=== PATIENT | female | born 1980 | race Caucasian/White ===

== ENCOUNTER 2023-11-19 14:39 | Outpatient (OUT) | payer BC, SELFPAY ==
[2023-11-19 15:16] LABS: Basophils Absolute Auto 0.1 10^3/uL (0.0-0.1); Basophils Percent Auto 0.4 % (0.2-2.0); Eosinophils Absolute Auto 0.3 10^3/uL (0.0-0.7); Eosinophils Percent Auto 2.3 % (0.9-7.0); Hematocrit 34.6 % (36.0-48.0); Hemoglobin 11.7 g/dL (12.0-16.0); Immature Granulocytes Abs Auto 0.04 10^3/uL (0.00-0.03); Immature Granulocytes Pct Auto 0.3 % (0.0-0.5); Lymphocytes Absolute Auto 4.2 10^3/uL (1.2-3.8); Lymphocytes Percent Auto 30.5 % (20.5-60.0); Mean Corpuscular HGB Conc 33.8 g/dL (29.9-35.2); Mean Corpuscular Hemoglobin 32.1 pg (26.7-34.0); Mean Corpuscular Volume 95.1 fL (81.0-99.0); Mean Platelet Volume 10.5 fL (9.5-13.5); Monocytes Absolute Auto 1.4 10^3/uL (0.3-0.8); Monocytes Percent Auto 10.1 % (1.7-12.0); Neutrophils Absolute Auto 7.7 10^3/uL (1.4-6.5); Neutrophils Percent Auto 56.4 % (43.0-75.0); Platelet Count 260 10^3/uL (150-450); Red Blood Count 3.64 10^6/uL (4.20-5.40); Red Cell Distribution Width 12.6 % (11.0-15.0); White Blood Count 13.7 10^3/uL (4.0-11.0)
[2023-11-19 15:30] LABS: Estimated Average Glucose 108 mg/dL; Glycohemoglobin A1C 5.4 % (4.5-6.2)
[2023-11-19 16:36] LABS: Alanine Aminotransferase 20 U/L (14-59); Albumin Globulin Ratio 1.1; Albumin Level 3.7 g/dL (3.4-5.0); Alkaline Phosphatase 53 U/L (46-116); Aspartate Amino Transferase 9 U/L (15-37); BUN Creatinine Ratio 17.6; Bilirubin Direct <0.1 mg/dL (0.0-0.2); Bilirubin Total 0.2 mg/dL (0.2-1.0); Calcium 8.5 mg/dL (8.5-10.1); Carbon Dioxide 27.6 mmol/L (21.0-32.0); Chloride 104 mmol/L (98-107); Chol HDL Ratio 6.1; Cholesterol 209 mg/dL (<=200); Estimated GFR (African America >60 (>=60); Estimated GFR (Non-African Ame >60 (>=60); Globulin 3.3 g/dL; Glucose 86 mg/dL (74-106); HDL Cholesterol 34 mg/dL (40-60); Potassium 3.6 mmol/L (3.5-5.1); Sodium 140 mmol/L (136-145); Thyroid Stimulating Hormone 2.764 uIU/mL (0.358-3.740); Triglycerides 191 mg/dL (<=150); VLDL CHOLESTEROL 38.2 mg/dL
== END 2023-11-19 14:40 | disposition home or self-care (01) ==
LOC: LAB 14:39
PROVIDERS: PCP Family Medicine; Visit Provider Family Medicine
DX: Z00.00 Encounter for general adult medical examination without abnormal findings (principal)
CPT/HCPCS: 36415; 80048; 80061; 80076; 83036; 84443; 85025

== ENCOUNTER 2023-12-12 21:28 | Outpatient (REF) | payer BC, SELFPAY ==
--- OUTSIDE RECORDS SUMMARY | 2023-12-12 21:33 | XMS_ITS | CCD ---
Author Organization [facility] Care Team Providers Care Third Miller Name Role Phone SHAYLA SANCHEZ Admitting Unavailable SHAYLA SANCHEZ Attending Unavailable Amie Huber Unavailable SHAYLA SANCHEZ Attending Unavailable Medications Current Medications Medication Drug Class(es) Dates Sig (Normalized) Sig (Original) methylPREDNISolone 4 mg oral tablet (1 source) Corticosteroid Start: 2 methylPREDNISolone 4 MG as directed Orally Once a day for 6 days May, Active Problems Active Problems Problem Classification Problem Date Documented Da te Episodic/Chronic Immunizations and screening for infectious disease (1 source) Contact with and (suspected) exposure to other viral communicable diseases Episodic Past or Other Problems Problem Classification Problem Date Documented Da te Episodic/Chronic Headache; including migraine (1 source) Headache; including migraine Viral infection (1 source) COVID-19 Results Test Name Value Interpretation Reference Range Facil ity COVID/FLU RT-PCRon 2 SARS-CoV-2 (COVID-19) RNA MATEO+probe Ql (Unsp spec) Positive [employer] Other COVID/FLU RT-PCR Negative [facility] [employer] Other Vital Signs Date Time Vital Sign Value Performing Clinician Facility 05-22-2022 15:45-0500 Body height 162.56 cm Amie Huber Other [facility] Other 05-22-2022 15:45-0500 Body mass index (BMI) [Ratio] 34.33 kg/m2 Amie Huber Other [facility] Other 05-22-2022 15:45-0500 Body temperature 99.8 [degF] Amie Huber Other [facility] Other 05-22-2022 15:45-0500 Body weight 90.72 kg Amie Huber Other [facility] Other 05-22-2022 15:45-0500 Respiratory rate 18 /min Amie Huber Other [facility] Other 05-22-2022 15:45-0500 SaO2% (BldA) [Mass fraction] 95 % Amie Huber Other [facility] Other Encounters Encounter Date Encounter Type Care Provider Facility Start: 11-21-2023 End: 11-21-2023 ambulatory SHAYLA SANCHEZ Not Available Start: 05-22-2022 End: 05-22-2022 ambulatory Amie Huber Other [facility] Other Start: 05-22-2022 Office outpatient ne w 30 minutes Amie Cecile [facility] Start: 10-28-2018 Patient encounter procedure SHAYLA Bob JOSEFidelina Facility:H1 Payers Date Payer Category Payer Medicare [id number] 1980 Unknown [id number] 2.16.84 [id number] 1980 Unknown [id number] 2.16.84 [id number] 1957 Self-pay Unknown [id number] 2.1 [id number] Social History Date Type Detail Facility Sex Assigned At [facility] Other Evaluation note 05-22-2022 Note Date & Type Note Facility 05-22-2022 Evaluation note Encounter Date Diagnosis Assessment Notes May, Contact with and (suspected) exposure to other viral communicable diseases (ICD-10 - Z20.828) May, COVID-19 (ICD-10 - U07.1) Today you tested positive for the COVID virus. This mean you need to follow all CDC quarantine guidelines found at coronavirus.o hio.gov. It is important to rest, increase fluids, and stay at home. Recommend contacting primary care provider and discussing best course of action if you have chronic health conditions. COVID POSITIVE education handout discharge instructions. given. May, Sinus headache (ICD-10 - R51.9) [facility] Other Summary Purpose Family History No Family History Records FoundNo Family History Records Found Advance Directives No Advanced Directives Records FoundNo Advanced Directives Records Found Additional Source Comments INFORMATION SOURCE (unrecogn ized section and content) DATE CREATED AUTHOR 01/18/2019 [facility] DATE CREATED AUTHOR AUTHOR'S ORGANIZ ATION 11/22/2023 [facility] EPIC REASON FOR VISIT (unrecogniz ed section and content) COUGH, CONGESTION FOR RECORDS PERTAINING TO PATIENTS WHO ARE OR HAVE BEEN ENROLLED IN A CHEMICAL DEPENDENCY/SUBSTANCEABUSE PROGRAM, SOME INFORMATION MAY BE OMITTED. This clinical summary was aggregated from multiple sources. Caution should be exercised in using it in the provision of clinical care. This summary normalizes information from multiple sources, and as a consequence, information in this document may materially change the coding, format and clinical context of patient data. In addition, data may be omitted in some cases. CLINICAL DECISIONS SHOULD BE BASED ON THE PRIMARY CLINICAL RECORDS. [employer] provides no warranty or guarantee of the accuracy or completeness of information in this document.
[2023-12-18 00:06] LABS: Age Gdln ACOG Testing Note (.); HPV Aptima Negative (Negative); IGP, Aptima HPV, rfx 16/18,45 Note (.)
== END 2023-12-12 21:29 | disposition home or self-care (01) ==
LOC: LAB 21:28
PROVIDERS: PCP Family Medicine; Visit Provider Nurse Practitioner
DX: Z01.419 Encounter for gynecological examination (general) (routine) without abnormal findings (principal)
CPT/HCPCS: 87624; 88175

== ENCOUNTER 2024-01-17 15:18 | Outpatient (OUT) | payer BC, SELFPAY ==
--- NOTE | 2024-01-17 15:50 | MM_ITS ---
Patient Name: TANYA MANCINI MR#: [id number] : 1980 Exam Date: 01/17/2024 Ordering Doctor: DR Fam Gale . RADIOLOGY REPORT PROCEDURE: MM TOMOSYNTHESIS SCREENING BI COMPARISON: None. INDICATIONS: Screening Calculator Name NCI Breast Cancer Risk Assessment Tool 5 Year Breast Cancer Risk 1.10% Lifetime Breast Cancer Risk 17.70% Personal Breast Cancer No Personal Ovarian Cancer No Treatments None Family Cancers Mother with breast cancer at age 57; Aunt-maternal with breast cancer at age 59. LOCATION: [facility] BREAST COMPOSITION: There are scattered areas of fibroglandular density. FINDINGS: DIAGNOSTIC CATEGORY 2--BENIGN FINDING: Scattered benign-appearing nodules are present. Scattered benign-appearing calcifications are present. Scattered benign-appearing lymph nodes are present. RIGHT BREAST: No significant suspicious finding. LEFT BREAST: No significant suspicious finding. RECOMMENDATIONS: ROUTINE MAMMOGRAM AND CLINICAL EVALUATION IN 12 MONTHS. PLEASE NOTE: A NORMAL MAMMOGRAM DOES NOT EXCLUDE THE POSSIBILITY OF BREAST CANCER. A CLINICALLY SUSPICIOUS PALPABLE LUMP SHOULD BE BIOPSIED. Dictated by: Yahir Muller MD on 01/17/2024 at 16:21 Approved by: Yahir uMller MD on 01/17/2024 at 16:29
== END 2024-01-17 15:19 | disposition home or self-care (01) ==
LOC: MAMMO 15:18
PROVIDERS: PCP Family Medicine; Visit Provider Family Medicine
DX: Z12.31 Encounter for screening mammogram for malignant neoplasm of breast (principal); Z80.3 Family history of malignant neoplasm of breast
CPT/HCPCS: 77063; 77067

== ENCOUNTER 2024-02-26 11:00 | Outpatient (OUT) | payer MEDICAID, SELFPAY ==
--- OUTSIDE RECORDS SUMMARY | 2024-02-26 11:03 | XMS_ITS | CCD ---
Author Organization [facility] Care Team Providers Care Chess Instructor Name Role Phone SHAYLA SANCHEZ Admitting Unavailable SHAYLA SANCHEZ Attending Unavailable Amie Huber Unavailable SHAYLA SANCHEZ Attending Unavailable LYNN RANDLE Attending Unavailable NILE TALAVERA Attending Unavailable Medications Current Medications Medication Drug [...] (COVID-19) RNA MATEO+probe Ql (Unsp spec) Positive [employer] Other COVID/FLU RT-PCR Negative [employer] Other Vital Signs Date Time Vital Sign Value Performing Clinician Facility 05-22-2022 15:45-0500 Body height 162.56 cm Amie Huber Other [facility] Other 05-22-2022 15:45-0500 Body mass index (BMI) [Ratio] 34.33 kg/m2 Amie Huber Other [facility] Other 05-22-2022 15:45-0500 Body temperature 99.8 [degF] Amie Huber Other [facility] Other 05-22-2022 15:45-0500 Body weight 90.72 kg Amie Huber Other [facility] Other 05-22-2022 15:45-0500 Respiratory rate 18 /min Amie Huber Other [facility] Other 05-22-2022 15:45-0500 SaO2% (BldA) [Mass fraction] 95 % Amie Huber Other [facility] Other Encounters Encounter Date Encounter Type Care Provider Facility Start: 02-05-2024 End: 02-05-2024 ambulatory NILE SADAF Not Available Start: 12-12-2023 End: 12-12-2023 ambulatory LYNN JER Not Available Start: 11-21-2023 End: 11-21-2023 ambulatory SHAYLA SANCHEZ Not Available Start: 05-22-2022 End: 05-22-2022 ambulatory Amie Cecile Other [facility] Other Start: 05-22-2022 Office outpatient ne w 30 minutes Amie Cecile [facility] Start: 10-28-2018 Patient encounter procedure SHAYLA SANCHEZ Facility:[facility]1 Payers Date Payer Category Payer Medicaid [id number] 1980 Unknown [id number] 2.16.84 [id number] 1980 Unknown [id number] [id number] 1980 Unknown [id number] 2.16.84 [id number] 1980 Unknown [id number] 2.16.84 [id number] 1957 Self-pay Unknown [id number] 2.1 [id number] Social History Date Type Detail Facility Sex Assigned At [facility] Other Evaluation note 05-22-2022 Note Date & [...] given. May, Sinus headache (ICD-10 - R51.9) [facility] Other Summary Purpose Family History No Family History Records FoundNo Family History Records Found Advance Directives No Advanced Directives Records FoundNo Advanced Directives Records Found Additional Source Comments INFORMATION SOURCE (unrecogn ized section and content) DATE CREATED AUTHOR 01/18/2019 [facility] DATE CREATED AUTHOR AUTHOR'S ORGANIZ ATION 02/07/2024 [facility] EPIC REASON FOR VISIT (unrecogniz [...] BE BASED ON THE PRIMARY CLINICAL RECORDS. [facility]. provides no warranty or guarantee of the accuracy or completeness of information in this document.
--- NOTE | 2024-02-26 11:04 | US_ITS ---
The [address] [address] Patient Name: TANYA MANCINI MRN: [id number] date: 1980 Sex: F Assigned Patient Location: [facility] Current Patient Location: Accession/Order Number: [id number] Exam Date: 02/26/2024 11:05 Report Date: 02/28/2024 07:08 At the request of: NILE TALAVERA Procedure: US pelvis w/ transvaginal EXAMINATION: US pelvis w/ transvaginal HISTORY: MENORRHAGIA COMPARISON: No relevant comparison available. FINDINGS: The uterus appears enlarged in size, lobular contour with heterogeneous echotexture. The uterus measures 11.5 x 8.1 x 8.0 cm per the uterus is anteverted, anteflexed. Identified at the posterior myometrial/endometrial interface 1.7 x 1.7 x 0.9 cm hypoechogenic mass. The endometrium measures 2.5 mm, heterogeneous. Correlate with the menstrual cycle The right ovary measures 3.1 x 1.4 x 3.1 cm. Doppler flow could not be obtained. The left ovary measures 3.3 x 1.6 x 2.3 cm. Doppler flow could not be obtained No free fluid US/US pelvis w/ transvaginal IMPRESSION: Enlarged lobular heterogeneous uterus with a 1.7 cm myometrial/endometrial mass. Fibroid is suspected Thickened heterogeneous endometrium, nonspecific Electronically authenticated by: SHAGUFTA LAUREANO Date: 02/28/2024 07:08
== END 2024-02-26 11:01 | disposition home or self-care (01) ==
LOC: NOMS 11:00
PROVIDERS: PCP Family Medicine; Visit Provider Obstetrics & Gynecology
DX: N92.0 Excessive and frequent menstruation with regular cycle (principal); N94.6 Dysmenorrhea, unspecified; N85.2 Hypertrophy of uterus
CPT/HCPCS: 76830; 76856

== ENCOUNTER 2024-02-28 12:16 | Outpatient (REF) | payer MEDICAID, SELFPAY ==
--- OUTSIDE RECORDS SUMMARY | 2024-03-10 12:24 | XMS_ITS | CCD ---
Author Organization [facility] Care Team Providers Care Operating Engineer Apprentice Name Role Phone SHAYLA SANCHEZ Admitting Unavailable SHAYLA SANCHEZ Attending Unavailable Amie Huber Unavailable SHAYLA SANCHEZ Attending Unavailable LYNN RANDLE Attending Unavailable NILE TALAVERA Attending Unavailable NILE TALAVERA Attending Unavailable Medications [...] (COVID-19) RNA MATEO+probe Ql (Unsp spec) Positive [employer] Other COVID/FLU RT-PCR Negative [employer] Other Vital Signs Date Time Vital Sign Value Performing Clinician Facility 05-22-2022 15:45-0500 Body height 162.56 cm Amie Huber Other [facility] Other 05-22-2022 15:45-0500 Body mass index (BMI) [Ratio] 34.33 kg/m2 Amie Huber Other [facility] Other 05-22-2022 15:45-0500 Body temperature 99.8 [degF] Amie Huber Other [facility] Other 05-22-2022 15:45-0500 Body weight 90.72 kg Amie Huber Other [facility] Other 05-22-2022 15:45-0500 Respiratory rate 18 /min Amie Huber Other [facility] Other 05-22-2022 15:45-0500 SaO2% (BldA) [Mass fraction] 95 % Amie Huber Other [facility] Other Encounters Encounter Date Encounter Type Care Provider Facility Start: 02-28-2024 End: 02-28-2024 ambulatory NILE SADAF Not Available Start: 02-05-2024 End: 02-05-2024 ambulatory NILE SADAF Not Available Start: 12-12-2023 End: 12-12-2023 ambulatory LYNN SOLOMONHOLZ Not Available Start: 11-21-2023 End: 11-21-2023 ambulatory SHAYLA SANCHEZ Not Available Start: 05-22-2022 End: 05-22-2022 ambulatory Amie Cecile Other [facility] Other Start: 05-22-2022 Office outpatient ne w 30 minutes Amie Cecile [facility] Start: 10-28-2018 Patient encounter procedure SHAYLA Lisbeth DANIEL Facility:[facility]1 Payers Date Payer Category Payer Medicaid [id number] 1980 Unknown [id number] 2.16.84 [id number] 1980 Unknown [id number] 2.16.84 [id number] 1980 Unknown [id number] 2.16.84 [id number] 1980 Unknown [id number] 2.16.84 [id number] 1980 Unknown [id number] 2.16.84 [id number] 1957 Self-pay Unknown [id number] 2.1 [id number] Social History Date Type Detail Facility Sex Assigned At [facility] Other Evaluation note 05-22-2022 Note Date & [...] given. May, Sinus headache (ICD-10 - R51.9) [facility] Other Summary Purpose Family History No Family History Records FoundNo Family History Records Found Advance Directives No Advanced Directives Records FoundNo Advanced Directives Records Found Additional Source Comments INFORMATION SOURCE (unrecogn ized section and content) DATE CREATED AUTHOR [facility]/18/2019 [facility] DATE CREATED AUTHOR AUTHOR'S ORGANIZ ATION 03/01/2024 [facility] EPIC REASON FOR VISIT (unrecogniz [...] BE BASED ON THE PRIMARY CLINICAL RECORDS. [facility] [employer] [facility]. provides no warranty or guarantee of the accuracy or completeness of information in this document.
== END 2024-02-28 12:17 | disposition home or self-care (01) ==
LOC: LAB 12:16
PROVIDERS: PCP Family Medicine; Visit Provider Obstetrics & Gynecology
DX: N92.0 Excessive and frequent menstruation with regular cycle (principal); N94.6 Dysmenorrhea, unspecified
CPT/HCPCS: 88305

== ENCOUNTER 2024-03-14 10:01 | Outpatient (OUT) | payer MEDICAID, SELFPAY ==
--- OUTSIDE RECORDS SUMMARY | 2024-03-14 10:09 | XMS_ITS | CCD ---
Author Organization [facility] Care Team Providers Care Tailor Fitter Name Role Phone SHAYLA SANCHEZ Admitting Unavailable [...] (COVID-19) RNA MATEO+probe Ql (Unsp spec) Positive [employer] Other COVID/FLU RT-PCR Negative [employer] Other Vital Signs Date Time Vital Sign Value Performing Clinician Facility 05-22-2022 15:45-0500 Body height 162.56 cm Amie Huber Other [employer] Other 05-22-2022 15:45-0500 Body mass index (BMI) [Ratio] 34.33 kg/m2 Amie Huber Other [employer] Other 05-22-2022 15:45-0500 Body temperature 99.8 [degF] Amie Huber Other [employer] Other 05-22-2022 15:45-0500 Body weight 90.72 kg Amie Huber Other [employer] Other 05-22-2022 15:45-0500 Respiratory rate 18 /min Amie Huber Other [employer] Other 05-22-2022 15:45-0500 SaO2% (BldA) [Mass fraction] 95 % Amie Huber Other [employer] Other Encounters Encounter Date Encounter Type Care Provider Facility Start: 02-28-2024 End: 02-28-2024 ambulatory NILE SADAF Not Available Start: 02-05-2024 End: 02-05-2024 ambulatory NILE SADAF Not Available Start: 12-12-2023 End: 12-12-2023 ambulatory LYNN SOLOMONHOLZ Not Available Start: 11-21-2023 End: 11-21-2023 ambulatory SHAYLA SANCHEZ Not Available Start: 05-22-2022 End: 05-22-2022 ambulatory Amie Cecile Other [employer] Other Start: 05-22-2022 Office outpatient ne w 30 minutes Amie Cecile [facility] Start: 10-28-2018 Patient encounter procedure SHAYLA Lisbeth DANIEL Facility:[facility]1 Payers Date Payer Category Payer Medicaid [id number] 1980 Unknown [id number] 2.16.84 [id number] 1980 Unknown [id number] 2.16.84 [id number] 1980 Unknown [id number] 2.16.84 [id number] 1980 Unknown [id number] 2.16.84 [id number] 1980 Unknown [id number] 2.16.84 [id number] 1957 Self-pay Unknown [id number] 2.1 [id number] Social History Date Type Detail Facility Sex Assigned At [employer] Other Evaluation note 05-22-2022 Note Date & [...] given. May, Sinus headache (ICD-10 - R51.9) [employer] Other Summary Purpose Family History No Family History Records FoundNo Family History Records Found Advance Directives No Advanced Directives Records FoundNo Advanced Directives Records Found Additional Source Comments INFORMATION SOURCE (unrecogn ized section and content) DATE CREATED AUTHOR [facility]/18/2019 [facility] DATE CREATED AUTHOR AUTHOR'S ORGANIZ ATION 03/01/2024 [facility] EPIC REASON FOR VISIT (unrecogniz [...] BE BASED ON THE PRIMARY CLINICAL RECORDS. [facility] [employer] [facility]. provides no warranty or guarantee of the accuracy or completeness of information in this document.
== END 2024-03-14 10:02 | disposition home or self-care (01) ==
LOC: PST 10:01
PROVIDERS: PCP Family Medicine; Visit Provider Obstetrics & Gynecology
DX: Z01.818 Encounter for other preprocedural examination (principal); R10.2 Pelvic and perineal pain; N94.10 Unspecified dyspareunia

== ENCOUNTER 2024-03-28 06:14 | Day surgery (SDC) | payer MEDICAID, SELFPAY ==
[2024-03-14 10:36] VITALS: BP 142/82; PULSE 71; TEMP 36.4; O2SAT 95; BMI 36.4
[2024-03-28] VITALS (12 sets, daily range): BP systolic 112–128; BP diastolic 65–92; PULSE 65–107; TEMP 36.2–36.3; O2SAT 94–100; BMI 36.7
--- OUTSIDE RECORDS SUMMARY | 2024-03-28 06:17 | XMS_ITS | CCD ---
Author Organization [facility] Care Team Providers Care Food Clerk Name Role Phone FAM SANCHEZ Admitting Unavailable FAM SANCHEZ Attending Unavailable Amie Huber Unavailable FAM SANCHEZ Attending Unavailable LYNN RANDLE Attending Unavailable NILE STILES Attending Unavailable NILE STILES Attending Unavailable FAM SANCHEZ Attending Unavailable Fam Sanchez MD Primary Care Provider Medications Current Medications Medication Drug Class(es) Dates Sig (Normalized) Sig (Original) ferrous sulfate 325 mg oral tablet (3 sources) take 1 tablet by mouth once daily Ferrous Sulfate (iron) 325 (65 Fe) MG tablet Take 325 mg by mouth Daily Active fexofenadine (3 sources) Histamine-1 Receptor Antagonist take 1 tablet by mouth once daily Fexofenadine HCl (ALLERGY 24-HR PO) Take 1 tablet by mouth Daily Active ibuprofen 800 mg oral tablet (3 sources) Nonsteroidal Anti-inflammatory Drug End: 4 ibuprofen 800 MG tablet Take 400 mg by mouth every 6 (six) hours if needed for mild pain 03/25/2024 Discontinued methylPREDNISolone 4 mg oral tablet (1 source) Corticosteroid Start: 2 methylPREDNISolone 4 MG as directed Orally Once a day for 6 days May, Active Multiple Vitamin (multivitamin) tablet (6 sources) take 1 tablet by mouth once daily Multiple Vitamin (multivitamin) tablet Take 1 tablet by mouth Daily Active nabumetone 500 mg oral tablet (2 sources) Nonsteroidal Anti-inflammatory Drug Start: 4 take 1 tablet by mouth twice daily as needed for pain nabumetone (Relafen) 500 MG tablet Indications: Chronic left shoulder pain Take 1 tablet (500 mg) by mouth 2 (two) times a day as needed for mild pain or moderate pain 60 tablet 3 03/25/2024 Active Start: 03-25-2024 take 1 tablet by james th twice daily as needed for pain nabumetone (Relafen) 500 MG tablet Indications: Chronic left shoulder pain Take 1 tablet (500 mg) by mouth 2 (two) times a day as needed for mild pain or moderate pain 60 tablet 3 03/25/2024 Active phentermine hydrochloride 37.5 mg oral tablet (2 sources) Sympathomimetic Amine Anorectic Start: 03-25-2024 End: 04-24-2024 take 1 tablet by mouth before mealtime phentermine (Adipex-P) 37.5 MG tablet Indications: Obesity (BMI 30-39.9) Take 1 tablet (37.5 mg) by mouth in the morning. Take before meals. 30 tablet 03/25/2024 04/24/2024 Active Problems Active Problems Problem Classification Problem Date Documented Da te Episodic/Chronic Disorders of lipid metabolism (8 sources) Mixed hyperlipidemia; Translations: [Mixed hyperlipidemia] Onset: 11-21-2023 Resolved: 12-12-2023 12-12-2023 Chronic Menstrual disorders (6 sources) Menorrhagia; Translations: [Excessive and frequent menstruation with regular cycle] Onset: 12-12-2023 12-12-2023 Chronic Other non-traumatic joint disorders (5 sources) Chronic pain of left upper limb; Translations: [Pain in left shoulder] Onset: 11-21-2023 11-21-2023 Episodic Other nutritional; endocrine; and metabolic disorders (3 sources) Obesity caused by energy imbalance; Translations: [Class 2 obesity due to excess calories without serious comorbidity in adult] Onset: 12-12-2023 12-12-2023 Chronic Other nutritional; endocrine; and metabolic disorders (6 sources) Body mass index 30+ - obesity; Translations: [Obesity, unspecified] Onset: 03-25-2024 03-25-2024 Chronic Residual codes; unclassified (5 sources) Hypersomnia; Translations: [Hypersomnia, unspecified] Onset: 11-21-2023 11-21-2023 Chronic Past or Other Problems Problem Classification Problem Date Documented Da te Episodic/Chronic Headache; including migraine (1 source) Headache; including migraine Immunizations and screening for infectious disease (4 sources) Contact with and (suspected) exposure to other viral communicable diseases; Translations: [At risk of sexually transmitted infection ] Onset: 12-12-2023 Episodic Inflammatory diseases of female pelvic organs (6 sources) Bacterial vaginosis; Translations: [Acute vaginitis] Onset: 12-17-2023 Resolved: 03-25-2024 12-17-2023 Episodic Other connective tissue disease (3 sources) Pain in right foot; Translations: [Pain in right foot] Onset: 11-21-2023 11-21-2023 Episodic Viral infection (1 source) COVID-19 Results Test Name Value Interpretation Reference Range Facil ity COVID/FLU RT-PCRon SARS-CoV-2 (COVID-19) RNA MATEO+probe Ql (Unsp spec) Positive [facility] [place] Other COVID/FLU RT-PCR Negative [facility] [place] Other Vital Signs Date Time Vital Sign Value Performing Clinician Facility 03-25-2024 10:17-0400 Body height 162.6 cm Fam Sanchez MD Work Phone: [facility] 03-25-2024 10:17-0400 Body mass index (BMI) [Ratio] 36.56 kg/m2 Fam Sanchez MD Work Phone: [facility] 03-25-2024 10:17-0400 Body temperature 98.2 [degF] Fam Sanchez MD Work Phone: [facility] 03-25-2024 10:17-0400 Body weight 96.62 kg Fam Sanchez MD Work Phone: [facility] 03-25-2024 10:17-0400 Diastolic blood pressure 64 mm[Hg] Fam Sanchez MD Work Phone: [facility] 03-25-2024 10:17-0400 Heart rate 92 /min Fam Sanchez MD Work Phone: [facility] 03-25-2024 10:17-0400 Respiratory rate 22 /min Fam Sanchez MD Work Phone: [facility] 03-25-2024 10:17-0400 SaO2% (BldA) [Mass fraction] 97 % Fam Sanchez MD Work Phone: [facility] 03-25-2024 10:17-0400 Systolic blood pressure 130 mm[Hg] Fam Sanchez MD Work Phone: [facility] 05-22-2022 15:45-0500 Body height 162.56 cm Amie Huber Other [facility] Other 05-22-2022 15:45-0500 Body mass index (BMI) [Ratio] 34.33 kg/m2 Amie Huber Other [facility] Other 05-22-2022 15:45-0500 Body temperature 99.8 [degF] Amie Huber Other [facility] Other 05-22-2022 15:45-0500 Body weight 90.72 kg Amie Huber Other [facility] Other 05-22-2022 15:45-0500 Respiratory rate 18 /min Amie Huber Other [facility] Other 05-22-2022 15:45-0500 SaO2% (BldA) [Mass fraction] 95 % Amie Huber Other [facility] Other Encounters Encounter Date Encounter Type Care Provider Facility Start: 03-25-2024 End: 03-25-2024 Bamboo flowsheet Fam Sanchez MD Work Phone: [facility] Start: 03-25-2024 End: 03-25-2024 Bamboo flowsheet Fam Sanchez MD Work Phone: [facility] Start: 03-25-2024 End: 03-25-2024 Office outpatient visit 25 minutes Fam Sanchez MD Work Phone: [facility] Comment on above: Chronic left shoulde r pain (Primary Dx); Hypersomnia; Obesity (BMI 30-39.9); Mixed hyperlipidemia (CMS/HCC); Body mass index (BMI) 36.0-36.9, adult Start: 03-25-2024 End: 03-25-2024 ambulatory FAM SANCHEZ Not Available Start: 02-28-2024 End: 02-28-2024 ambulatory NILE SADAF Not Available Start: 02-05-2024 End: 02-05-2024 ambulatory NILE SADAF Not Available Start: 12-12-2023 Patient encounter procedure Fam Sanchez MD Work Phone: [facility] Start: 12-12-2023 End: 12-12-2023 ambulatory LYNN JER Not Available Start: 11-21-2023 End: 11-21-2023 ambulatory FAM SANCHEZ Not Available Start: 10-30-2023 Patient encounter procedure Fam Sanchez MD Work Phone: [facility] Start: 05-22-2022 End: 05-22-2022 ambulatory Amie Huber Other [employer] Other Start: 05-22-2022 Office outpatient ne w 30 minutes Amie Huber [facility] Start: 10-28-2018 Patient encounter procedure FAM SANCHEZ Facility:[facility] Procedures Date Procedure Procedure Detail Performing Clinician Start: 01-17-2024 Mammography Fam bettencourt MD Work Phone: Start: 12-12-2023 Microscopic observat ion [Identifier] in Cervix by Cyto stain Fam Sanchez MD Work Phone: Plan of Treatment Date Care Activity Detail Author Start: 12-11-2028 Screening for malign ant neoplasm of cervix [facility] Start: 12-11-2026 Screening for malign ant neoplasm of cervix Pap Smear [facility] Start: 01-16-2025 Screening for malign ant neoplasm of breast Mammogram [facility] Start: 05-06-2024 End: 05-06-2024 Patient encounter procedure 05/06/2024 9:30 AM EST Office Visit [facility] [address] [place] [phone] Fam Sanchez MD [address] [place] [phone] [facility] Start: 03-28-2024 End: 03-28-2024 Patient encounter procedure 03/28/2024 7:30 AM EDT Procedure Visit [facility], [address] [place] [address] [facility] Start: 03-25-2024 End: 03-25-2025 XR Shoulder - left 2 Views XR shoulder 2+ views left Imaging Routine Chronic left shoulder pain Expected: 03/25/2024, Expires: 03/25/2025 [facility] Work Phone: Comment on above: Expected: 03/25/2024 , Expires: 03/25/2025 Start: 03-25-2024 End: 03-25-2024 Patient encounter procedure 03/25/2024 10:15 AM EDT Office Visit [facility] [address] [place] [phone] Fam Sanchez MD [address] [place] [phone] Arrived [facility] Comment on above: Arrived Start: 02-10-2024 Influenza vaccination Influenz a Vaccine (#1) [facility] Immunizations Immunization Date Immunization Notes Care Provider Fa cili 05-13-2021 Pfizer Purple Cap SARS-CoV-2 Vaccination Fam Sanchez MD Work Phone: [facility] 04-21-2021 Pfizer Purple Cap SARS-CoV-2 Vaccination Fam Sanchez MD Work Phone: [facility] Payers Date Payer Category Payer Medicaid [employer] [place] [id number] 2023 Medicaid [id number] 1980 Unknown [id number] 1982 Unknown [id number] 1982 Unknown [id number] 1982 Unknown [id number] 1982 Unknown [id number] 1982 Unknown [id number] 1957 Self-pay Unknown [id number] Social History Date Type Detail Facility Start: 11-20-2023 End: 03-25-2024 Sex Assigned At [facility] Start: 11-21-2023 Tobacco smoking status NHIS Never sm oked tobacco [facility] Start: 11-21-2023 Tobacco use and exposure Smoke less tobacco non-user [facility] Start: 11-20-2023 End: 03-25-2024 History of Social function [facility] How often do you get together with friends or relatives? Patient declined [facility] Do you belong to any clubs or organizations such as anabaptism groups, unions, fraternal or athletic groups, or school groups? No [facility] Are you now , , , , never or living with a partner? Living with partner [facility] How often to you hav e a drink containing alcohol? 2-4 times a month [facility] How many standard dr inks containing alcohol do you have on a typical day? 1 or 2 [facility] How hard is it for y ou to pay for the very basics like food, housing, medical care, and heating Not very hard [facility] Do you feel stress - tense, restless, nervous, or anxious, or unable to sleep at night because your mind is troubled all the time - these days [OSQ] Not at all [facility] (I/We) worried wheth er (my/our) food would run out before (I/we) got money to buy more. Never true [facility] Start: 1980 Sex assigned at Female [facility] Start: 11-15-2023 Gender identity Identifies as female gender (finding) [facility] Start: 11-15-2023 Sexual orientation Choose not to dis close [facility] History of Present illness Narrative 03-25-2024 Fam Sanchez MD - 03/25/2024 10:49 AM Johnny Sanchez MD - 03/25/2024 10:49 AM Johnny Sanchez MD - 03/25/2024 10:49 AM Johnny Sanchez MD - 03/25/2024 10:15 AM EDT Note Date & Type Note Facility 03-25-2024 History of Presen t illness Narrative Associated Problem(s): Obesity (BMI 30-39.9) Patient overweight and difficult time losing weight. Discussed proper diet and regular aerobic exercise. Recommend Weight Watchers and need to limit calories and smaller portions. Need to increase activity and regular aerobic exercise several days a week for 30 minutes at a time. Interested in adipex and warned of potential cardiac side effects. Script written for first month and will need to recheck weight in 1 month. OARRS reviewed. Continue medications as prescribed. Associated Problem(s): Hypersomnia Signs of MELINDA and check sleep study. Associated Problem(s): Chronic left shoulder pain Pain for years but no prior evaluation. Check x-ray and start PT. Start relafen. If no improvement may need MRI or ortho. Images from the original note were not included. Subjective Patient ID: Mariam Valencia is a 43 y.o. female who presents for Follow-up (Sleep study, /Wegovy,/Xray of left shoulder). C/o fatigue, shoulder pain, and problems losing weight. Concerned of MELINDA. Tired all the time and no energy. Told snores at night and at times will stop breathing during sleep. Not rested in am and tired all day. Often wake up with WICK. Not gasping. Never had sleep study. C/o left shoulder pain for years. In her 20s fell going down steps. Reached back to catch self and pulled left shoulder. Pain in shoulder since. Full ROM and no weakness. Pain to use shoulder and pain after activity. Pain deep in shoulder and at times in front of shoulder but other times towards top. Using OTC PRN and helps. No prior evaluation for pain. Concerned of weight and complications from weight. Tries to stay active and walk several days a week. Tries to watch diet and eat healthy. Increased fruits and vegetables. Smaller portions and limits snacking. Tries to limit total daily calories. Requests medication for weight loss. Review of Systems Respiratory: Negative for cough, shortness of breath and wheezing. Cardiovascular: Negative for chest pain and palpitations. Gastrointestinal: Negative for abdominal pain, diarrhea, nausea and vomiting. Genitourinary: Negative for dysuria. Objective Physical Exam Constitutional: General: She is not in acute distress. Appearance: Normal appearance. HENT: Head: Normocephalic. Right Ear: Tympanic membrane normal. Left Ear: Tympanic membrane normal. Eyes: Extraocular Movements: Extraocular movements intact. Pupils: Pupils are equal, round, and reactive to light. Cardiovascular: Rate and Rhythm: Normal rate and regular rhythm. Heart sounds: No murmur heard. No friction rub. No gallop. Pulmonary: Effort: Pulmonary effort is normal. Breath sounds: Normal breath sounds. No wheezing, rhonchi or rales. Abdominal: General: Bowel sounds are normal. There is no distension. Palpations: Abdomen is soft. Tenderness: There is no abdominal tenderness. There is no guarding or rebound. Musculoskeletal: Cervical back: Neck supple. Right lower leg: No edema. Left lower leg: No edema. Comments: Left shoulder: Full ROM. Strength rotator cuff 5/5. Neurological: Mental Status: She is alert. Assessment/Plan Problem List Items Addressed This Visit Chronic left shoulder pain - Primary Pain for years but no prior evaluation. Check x-ray and start PT. Start relafen. If no improvement may need MRI or ortho. Relevant Medications nabumetone (Relafen) 500 MG tablet Other Relevant Orders XR shoulder 2+ views left Hypersomnia Signs of MELINDA and check sleep study. Obesity (BMI 30-39.9) Patient overweight and difficult time losing weight. Discussed proper diet and regular aerobic exercise. Recommend Weight Watchers and need to limit calories and smaller portions. Need to increase activity and regular aerobic exercise several days a week for 30 minutes at a time. Interested in adipex and warned of potential cardiac side effects. Script written for first month and will need to recheck weight in 1 month. OARRS reviewed. Continue medications as prescribed. Relevant Medications phentermine (Adipex-P) 37.5 MG tablet documented in this encounter [facility] Evaluation note 05-22-2022 Note Date & Type [...] given. May, Sinus headache (ICD-10 - R51.9) [employer] Other Evaluation note Note Date & Type Note Facility Evaluation note Diagnosis Annual physical exam- Primary Routine general medical examination at a health care facility Hypersomnia Hypersomnia, unspecified Breast cancer screening by mammogram Encounter for well woman exam with routine gynecological exam- Primary Possible exposure to STD Menorrhagia with regular cycle Dysmenorrhea Vaginal infection- Primary Unspecified vaginitis and vulvovaginitis Bacterial vaginosis Unspecified vaginitis and vulvovaginitis Chronic left shoulder pain- Primary Pain in joint, shoulder region Hypersomnia Hypersomnia, unspecified Obesity (BMI 30-39.9) Mixed hyperlipidemia (CMS/HCC) Mixed hyperlipidemia Body mass index (BMI) 36.0-36.9, adult documented in this encounter [facility] Summary Purpose Family History No Family History Records FoundNo Family History Records Found Advance Directives No Advanced Directives Records FoundNo Advanced Directives Records Found Additional Source Comments INFORMATION SOURCE (unrecogn ized section and content) DATE CREATED AUTHOR 01/18/2019 [facility] DATE CREATED AUTHOR AUTHOR'S ORGANIZ ATION 03/27/2024 [facility] EPIC REASON FOR VISIT (unrecogniz ed section and content) Reason Comments Follow-up Sleep study, Wegovy, Xray of left shoulder Care Teams (unrecognized sec tion and content) Food Clerk Relationship Specialty Start Date End Date Fam Sanchez MD [address] [place] [phone] PCP - General Family Medicine 10/30/23 Food Clerk Relationship Specialty Start Date End Date Fam Sanchez MD [address] [place] [phone] PCP - General Family Medicine 10/30/23 FOR RECORDS PERTAINING TO PATIENTS WHO ARE [...] BE BASED ON THE PRIMARY CLINICAL RECORDS. [facility]. provides no warranty or guarantee of the accuracy or completeness of information in this document.
[2024-03-28 06:36] LABS: Basophils Absolute Auto 0.1 10^3/uL (0.0-0.1); Basophils Percent Auto 0.5 % (0.2-2.0); Eosinophils Absolute Auto 0.2 10^3/uL (0.0-0.7); Eosinophils Percent Auto 2.1 % (0.9-7.0); Hematocrit 37.4 % (36.0-48.0); Hemoglobin 12.5 g/dL (12.0-16.0); Immature Granulocytes Abs Auto 0.03 10^3/uL (0.00-0.03); Immature Granulocytes Pct Auto 0.3 % (0.0-0.5); Lymphocytes Absolute Auto 2.8 10^3/uL (1.2-3.8); Lymphocytes Percent Auto 27.4 % (20.5-60.0); Mean Corpuscular HGB Conc 33.4 g/dL (29.9-35.2); Mean Corpuscular Hemoglobin 32.2 pg (26.7-34.0); Mean Corpuscular Volume 96.4 fL (81.0-99.0); Mean Platelet Volume 10.1 fL (9.5-13.5); Monocytes Percent Auto 9.9 % (1.7-12.0); Neutrophils Percent Auto 59.8 % (43.0-75.0); Platelet Count 238 10^3/uL (150-450); Red Blood Count 3.88 10^6/uL (4.20-5.40); Red Cell Distribution Width 12.6 % (11.0-15.0)
[2024-03-28] MEDS: 0.9 % SODIUM CHLORIDE 500 ML 50 ML IV ×2 (06:59→09:42)
[2024-03-28 07:00] LABS: HCG Quantitative <1 mIU/mL
[2024-03-28] MEDS: LACTATED RINGER'S SOLUTION 1,000 ML 50 ML IV (08:45)
--- NOTE | 2024-03-28 08:52 | P.ON_ITS ---
Brief Operative Note Date of procedure: 03/28/24 Pre-op diagnosis general: pelvic pain, dyspareunia, dysmenorrhea Post-op diagnosis: same as pre-op Procedure: NAME OF PROCEDURE: robotic assisted bilateral laparoscopic salpingectomy with removal of essure coils, iud placement PROCEDURE: The patient was taken back to the Operating Room where she was given general anesthesia without difficulty. She was then prepped and draped in the normal sterile fashion after being placed in a dorsal lithotomy position. A wet sponge stick was placed into the patient's vagina. Please note iud was placed without difficulty. Attention was then turned to the patient's abdomen, where a scalpel was used to make a small infraumbilical incision. The S retractors were then used to dissect the underlying layers until the fascia could be seen. The fascia was then grasped with Servando clamps and tented up. A knife was then used to make a small incision to the fascia. The muscle was identified, at that time two sutures of #0 Vicryl on a GI needle was then used and placed through the fascia. the peritoneum was then identified and entered bluntly. The 10-4 Chayo was then placed into the patient's abdomen. This was confirmed with direct visualization of the bowel, using the laparoscope. The patient's abdomen was then insufflated using approximately 4 liters of CO2 gas. Survey of the patient's abdomen demonstrated ovaries were normal in appearance as well as both tubes and uterus. A second and third rt and lt lateral robotic ports which were 8 mm in size, was then placed after the skin incision was made under direct visualization . the robotic arms were engaged. The patient's tube on the patient's right side was identified and tented up using a grasper, the ligasure apparatus was then used to come across the mesosalpingx from the fimbriated end to the insertion site at the uterus, the tube was then amputated and removed in its entirety. Please note the essure coils were grasped and removed in there entirity. This was done on the contralateral side. The tubes were the removed from the patients abdomen. Excellent hemostasis was noted. The lateral ports were then moved under direct visualization with excellent hemostasis. All instruments were removed from the patient's abdomen. The fascia was closed using the #0 Vicryl on GI needle. The skin was closed using 4-0 Vicryl subcuticularly. All instruments were removed from the patient's vagina as well. The patient was taken out of the dorsal lithotomy position and placed in the supine position and taken to recovery in stable condition. Sponge, lap and needle counts were correct x2. Anesthesia: AMAURY Surgeon: Kiet Stiles Data Warehouse Consultant: Jacquie Mooney Estimated blood loss (mL): 5 Pathology: other (tubes and coils) Condition: stable Disposition: PACU Urinary Catheter Management Urinary Catheter Management Urethral: Cath placed during this visit: no
[2024-03-28] MEDS: HYDROCODONE/ACET 5-325 MG TABLET 1 TAB PO (09:52)
--- NOTE | 2024-03-28 09:53 | PC.NURSE ---
0952- Patient medicated with [place] for pain as ordered.
--- NOTE | 2024-03-28 11:17 | PC.NURSE ---
1100- Patient upto br and voids without difficulty.
== END 2024-03-28 11:15 | disposition home or self-care (01) ==
PROVIDERS: PCP Family Medicine; Visit Provider Obstetrics & Gynecology
PROC: (CPT 840; principal; 2024-03-28 07:30)
DX: R10.2 Pelvic and perineal pain (principal); N94.10 Unspecified dyspareunia; N92.0 Excessive and frequent menstruation with regular cycle; N83.202 Unspecified ovarian cyst, left side; N85.2 Hypertrophy of uterus; N83.8 Other noninflammatory disorders of ovary, fallopian tube and broad ligament
CPT/HCPCS: 49322; 58300; 58661; 36415; 84702; 85025; 88302; J1885; J2250; J2405; J2704; J3010